=== PATIENT | female | born 1955 | race Caucasian/White ===

== ENCOUNTER 2021-05-14 08:54 | Outpatient (REF) | payer MEDICARE, OTHER, SELFPAY ==
--- NOTE | ~2021-05-14 | CT_ITS ---
EXAMINATION: CT CHEST WITHOUT CONTRAST CLINICAL INFORMATION: Pulmonary nodule follow-up COMPARISON: Previous chest CT April 2020 TECHNIQUE: Multidetector volumetric CT imaging of the chest was done. Axial MIP volume rendering provided. Sagittal and coronal reformatted images were obtained. This CT examination was performed using dose optimization techniques as appropriate, variously including the following: *Automated exposure control *Adjustment of mA and/or kV according to patient size (this includes techniques or standardized protocols for targeted exams where dose is matched to indication/reason for exam; i.e. extremities or head) *Use of iterative reconstruction technique DLP: 133 mGy-cm FINDINGS: VEGETABLES COOK: Unremarkable LUNGS: There is a new 4 mm peripheral or subpleural left lower lobe lower lobe nodule axial image 396 series 7. This probably represents a subpleural lymph node. The small pulmonary nodules are otherwise stable. Largest small pulmonary nodule is a 4 mm peripheral or subpleural right lower lobe nodule adjacent to the major fissure axial image 310 series 7 also probably representing a subpleural lymph node. MEDIASTINUM: The heart does not appear enlarged. There is a trace pericardial effusion or thickening that is stable. There is minimal coronary artery calcification. The thoracic aorta is normal in caliber. There are no enlarged hilar or mediastinal lymph nodes. The visualized thyroid gland is unremarkable. PLEURA: There is no pleural effusion. No pleural mass or thickening. AXILLA: No lymphadenopathy. UPPER ABDOMEN: There is diverticulosis of the colon. There is a 5 x 10 mm low-attenuation lesion high in the right lobe of the liver axial image 56 series 3. Difficult to characterize due to small size and lack of contrast but appears unchanged. OSSEOUS STRUCTURES: There are degenerative changes of the spine. CT/CT chest wo con IMPRESSION: New 4 mm peripheral or subpleural left lower lobe nodule probably representing a subpleural node. Otherwise small pulmonary nodules are stable.
== END 2021-05-14 08:55 | disposition home or self-care (01) ==
LOC: HO.CT 08:54
PROVIDERS: Visit Provider Hospitalist
DX: R91.1 Solitary pulmonary nodule (principal)
CPT/HCPCS: 71250

== ENCOUNTER → 2021-05-30 14:56 | Outpatient (BNVA) | payer MEDICARE, OTHER, SELFPAY | PROVIDERS: PCP Nurse Practitioner Family; Visit Provider Hospitalist | DX: R91.8 Other nonspecific abnormal finding of lung field (principal); J67.9 Hypersensitivity pneumonitis due to unspecified organic dust; J41.0 Simple chronic bronchitis; K21.9 Gastro-esophageal reflux disease without esophagitis | CPT/HCPCS: Q3014 ==

== ENCOUNTER 2022-05-01 10:33 | Outpatient (REF) | payer MEDICARE, SELFPAY ==
--- NOTE | ~2022-05-01 | CT_ITS ---
EXAMINATION: CT CHEST WITHOUT CONTRAST CLINICAL INFORMATION: Hypersensitivity pneumonitis COMPARISON: Previous chest CT scans, most recent April 2021 TECHNIQUE: Multidetector volumetric CT imaging of the chest was done. Axial MIP volume rendering provided. Sagittal and coronal reformatted images were obtained. This CT examination was performed using dose optimization techniques as appropriate, variously including the following: *Automated exposure control *Adjustment of mA and/or kV according to patient size (this includes techniques or standardized protocols for targeted exams where dose is matched to indication/reason for exam; i.e. extremities or head) *Use of iterative reconstruction technique DLP: 125 mGy-cm FINDINGS: LUNGS: The previously identified 4 mm peripheral or subpleural left lower lobe nodule that was new on April 2021 exam is no longer seen. The small pulmonary nodules are otherwise stable. Largest pulmonary nodule is a 5 mm peripheral or subpleural right lower lobe nodule adjacent to the major fissure axial image 309 series 7 that represents a subpleural lymph node. There is a small 1 cm cyst in the peripheral anterior segment of the right upper lobe axial image 209 series 7. The lungs are otherwise clear. No endobronchial or endotracheal lesion is seen. No evidence of emphysema interstitial lung disease or bronchiectasis is seen. No endobronchial or endotracheal lesion is seen. MEDIASTINUM: There is trace pericardial fluid or thickening and minimal coronary artery calcification that is stable. The mediastinum is otherwise normal. PLEURA: There is no pleural effusion. No pleural mass or thickening. AXILLA: No lymphadenopathy. UPPER ABDOMEN: There is diverticulosis of the colon. Stable 5 x 10 mm low-attenuation lesion high in the dome of the right lobe OSSEOUS STRUCTURES: There are degenerative changes of the spine. CT/CT chest wo con IMPRESSION: Previously identified 4 mm peripheral or subpleural left lower lobe nodule that was new on April 2021 exam is no longer seen. Small pulmonary nodules are otherwise stable. Fleischner guidelines were followed.
== END 2022-05-01 10:34 | disposition home or self-care (01) ==
LOC: HO.CT 10:33
PROVIDERS: PCP Registered Nurse; Visit Provider Hospitalist
DX: J67.9 Hypersensitivity pneumonitis due to unspecified organic dust (principal); R91.8 Other nonspecific abnormal finding of lung field
CPT/HCPCS: 71250

== ENCOUNTER → 2022-05-27 13:40 | Outpatient (BNVA) | payer MEDICARE, SELFPAY | PROVIDERS: PCP Registered Nurse; Visit Provider Hospitalist | DX: R91.8 Other nonspecific abnormal finding of lung field (principal); J41.0 Simple chronic bronchitis; J67.9 Hypersensitivity pneumonitis due to unspecified organic dust; K21.9 Gastro-esophageal reflux disease without esophagitis | CPT/HCPCS: 99212 ==

== ENCOUNTER 2023-05-12 10:45 | Outpatient (REF) | payer MEDICARE, SELFPAY ==
--- NOTE | ~2023-05-12 | CT_ITS ---
EXAMINATION: CT CHEST WITHOUT CONTRAST CLINICAL INFORMATION: Pulmonary nodule COMPARISON: Previous chest CT April 2021 TECHNIQUE: Multidetector volumetric CT imaging of the chest was done. Axial MIP volume rendering provided. Sagittal and coronal reformatted images were obtained. This CT examination was performed using dose optimization techniques as appropriate, variously including the following: *Automated exposure control *Adjustment of mA and/or kV according to patient size (this includes techniques or standardized protocols for targeted exams where dose is matched to indication/reason for exam; i.e. extremities or head) *Use of iterative reconstruction technique DLP: 129 mGy-cm FINDINGS: HELMET COVERER: Unremarkable LUNGS: The small pulmonary nodules are stable. Largest pulmonary nodule is a 2 x 5 mm peripheral or subpleural right lower lobe nodule adjacent to the major fissure axial image 290 series 5. This may represent a subpleural lymph node. The lungs are otherwise clear. No endobronchial or endotracheal lesion. Small 1 cm cyst in the anterior right upper lobe. MEDIASTINUM: The mediastinum is normal. CORONARY ARTERY CALCIFICATION: None visualized on this study. PLEURA: There is no pleural effusion. No pleural mass or thickening. AXILLA: No lymphadenopathy. UPPER ABDOMEN: Diverticulosis of the colon. Stable subcentimeter low-attenuation lesion high in the dome of the right lobe of the liver. OSSEOUS STRUCTURES: Degenerative changes of the spine. CT/CT chest wo IV con IMPRESSION: Stable pulmonary nodules. Fleischner guidelines were followed.
== END 2023-05-12 10:46 | disposition home or self-care (01) ==
LOC: HO.CT 10:45
PROVIDERS: PCP Registered Nurse; Visit Provider Hospitalist
DX: R91.8 Other nonspecific abnormal finding of lung field (principal)
CPT/HCPCS: 71250

== ENCOUNTER → 2023-05-27 09:26 | Outpatient (BNVA) | payer MEDICARE, SELFPAY | PROVIDERS: PCP Registered Nurse; Visit Provider Hospitalist | DX: R91.8 Other nonspecific abnormal finding of lung field (principal); J67.9 Hypersensitivity pneumonitis due to unspecified organic dust; J41.0 Simple chronic bronchitis; K21.9 Gastro-esophageal reflux disease without esophagitis; J30.0 Vasomotor rhinitis | CPT/HCPCS: 99212 ==

== ENCOUNTER 2024-02-26 13:11 | Outpatient (AMB) | payer MEDICARE, OTHER, SELFPAY ==
[2024-02-26 13:16] VITALS: BP 98/62; PULSE 80; O2SAT 97; BMI 26.6
--- NOTE | 2024-02-26 13:16 | MHC.OFFVIS ---
Intake Vital Signs 02/26/24 13:16 Height 5 ft 6 in Weight 165 lb BMI 26.6 BP 98/62 Blood Pressure Location Rt brachial Position Sitting Pulse 80 Pulse Source Doppler Pulse Oximetry (%) 97 Oxygen Delivery Method Room Air Intake Visit Reasons: cough Allergies No Known Allergies Allergy (Verified 02/26/24 13:20) HPI HPI Comments History of Present Illness Details The patient is 68 y/o woman with a history of HSP, hiatal hernia: Chronic bronchitis and pulmonary nodules. Overall the right is feeling better. Finally her place work took her of that mold infected environment where she was having worsening respiratory symptoms for numerous years. She is doing better but she has been out of the environment only for 2 months. She has not been using her inhalers regularly. Although, she still has a cough. The cough still lingering mild in severity. Nonproductive in nature. She also underwent a CT scan of the chest to clinic follow up the pulmonary nodules. We personally reviewed the CT scan from June 2019 in June 2018. There appears to be a new left lower lobe density which appears to be 6 mm in size in new compared to her previous. This was not mentioned in the report from Radiology. We will have to add an addendum. In the meantime she does need to have a repeat CT scan in 6 months. She definitely has issues with reflux disease that could be contributing to her very sensitive larynx due to pharyngeal- laryngeal penetration in addition to postnasal drip and allergies. We did look at her last CT scan of the chest that she had back in June mentioning what appeared to be a new left lower lobe density measuring 6 mm in size. The patient should be getting a CT scan 6-9 months from her previous CT scan. I'll make arrangements for that. 05/27/2022 the patient is here for a pulmonary follow-up visit. Overall the patient has been doing well. Her cough is better overall although still congested and intermittent. She does have her significant other with her and he does comment on her cough and feels that is very harsh at times. She denies any shortness of breath. She has been active and exercising regularly. The patient did have a CT scan of the chest April 2022 which we personally reviewed and compared to her previous 1 from 2020. It appears that her pulmonary nodules are stable. She has 1 nodule that has resolved. These nodules have been followed now for 1 year. Will go ahead and repeat the CT scan in a year's time to make sure that there is stability for more than 2 years and we can just follow as needed depending how she is doing. On examination she does have some rhonchi on examination. I do believe that she will benefit from Symbicort. She has used it in the past but then stopped it. Will go ahead and restart at this time. 02/26/2024 the patient is here for pulmonary follow-up visit. Overall the patient is doing well. She started having worsening cough though the last few months. Intermittent. Sometimes with nasal congestion and postnasal drip. She does get worsening postnasal drip and nasal drainage specially when she is going to eat. Her cough sometimes is nonproductive sometimes is productive. She does have a Symbicort inhaler but she has not been using it regularly. She does have hypersensitivities to mold. 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 Explained to her that if she is working with therapy she needs to make sure she use the mask because the mold exposures. She also should be using the Symbicort. In the meantime she may have a component of vasomotor rhinitis. Will go ahead and treat that as well. She does have significant postnasal drip on examination. Her lungs appear to be clear at this time. Also reassuring that she had a recent CT scan of the chest demonstrating no significant changes in her pulmonary nodules and no evidence of any underlying airspace disease. Will plan to follow-up with a CT scan in Fall 2023 COUNTS INCLUDE 234 BEDS AT THE [facility] Medical History (Updated 05/27/23 @ 19:37 by Jabier Reno MD) Vasomotor rhinitis GERD (gastroesophageal reflux disease) Chronic bronchitis Hypersensitivity pneumonitis Pulmonary nodules Social History Patient Tobacco Use Status: Never used Tobacco Review of Systems Const Denies night sweats ENT Denies change in voice, Denies lip swelling, Denies mouth pain, Reports nasal congestion, Reports nasal discharge, Reports post nasal drip and Denies tongue swelling Card Denies chest pain Resp Reports chest congestion and Reports cough GI Denies abdominal pain Musc Denies no additional complaints Neuro Denies Neuro-related abnormal movements Psych Denies no additional complaints Scott/Lymph Denies easy bleeding and Denies lymphadenopathy Aller/Immun Denies lip swelling and Denies tongue swelling Physical Exam Vital Signs: Last Vital Signs Pulse 80 02/26/24 13:16 BP 98/62 02/26/24 13:16 Pulse Ox 97 02/26/24 13:16 Oxygen Delivery Method Room Air 02/26/24 13:16 BMI result Body Mass Index 26.6 Const General: comfortable HEENT Head: Yes normal to inspection General nose exam: Nasal discharge present Eyes General: appearance normal, both eyes and all related structures Neck Neck: Yes supple Chest Chest palpation & inspection: normal inspection of the chest Resp Auscultation: clear to auscultation bilaterally and no rhonchi Cardio Rate: regular rate Rhythm: regular rhythm Heart sounds: S1 normal heart sound present and S2 normal heart sound present GI Inspection: Yes normal to inspection Skin General skin exam: no rashes or lesions noted Assessment & Plan Assessment & Plan (1) Pulmonary nodules: Code(s): R91.8 - Other nonspecific abnormal finding of lung field (2) Hypersensitivity pneumonitis: Comment: better Code(s): J67.9 - Hypersensitivity pneumonitis due to unspecified organic dust (3) Chronic bronchitis: Comment: better Code(s): J42 - Unspecified chronic bronchitis Qualifiers: Chronic bronchitis type: simple Qualified Code(s): J41.0 - Simple chronic bronchitis (4) GERD (gastroesophageal reflux disease): Code(s): K21.9 - Gastro-esophageal reflux disease without esophagitis Qualifiers: Esophagitis presence: without esophagitis Qualified Code(s): K21.9 - Gastro-esophageal reflux disease without esophagitis (5) Vasomotor rhinitis: Code(s): J30.0 - Vasomotor rhinitis Plan Symbicort to use as needed benzonates as needed ipratropium nasal spray as needed Needs Prevnar 20 F/U CT chest Fall 2023 F/U Fall 2023 Orders: Orders CT chest wo IV con 6 Months R91.8 - Other nonspecific abnormal finding of lung field Coding Level of Care Code Est Pt Level 4 (22358) Diagnoses Pulmonary nodules R91.8 Hypersensitivity pneumonitis J67.9 Simple chronic bronchitis J41.0 Chronic bronchitis type: simple Gastroesophageal reflux disease without esophagitis K21.9 Esophagitis presence: without esophagitis Vasomotor rhinitis J30.0 Time Spent (min) 16
== END 2024-02-26 13:47 | disposition home or self-care (01) ==
PROVIDERS: PCP Registered Nurse; Visit Provider Hospitalist
DX: R91.8 Other nonspecific abnormal finding of lung field (principal); J67.9 Hypersensitivity pneumonitis due to unspecified organic dust; J41.0 Simple chronic bronchitis; K21.9 Gastro-esophageal reflux disease without esophagitis; J30.0 Vasomotor rhinitis
CPT/HCPCS: 99214

== ENCOUNTER → 2024-02-26 13:11 | Outpatient (BNVA) | payer MEDICARE, SELFPAY | PROVIDERS: PCP Registered Nurse; Visit Provider Hospitalist | DX: J41.0 Simple chronic bronchitis (principal); J67.9 Hypersensitivity pneumonitis due to unspecified organic dust; J30.0 Vasomotor rhinitis; R91.1 Solitary pulmonary nodule; R91.8 Other nonspecific abnormal finding of lung field; K21.9 Gastro-esophageal reflux disease without esophagitis | CPT/HCPCS: 99212 ==

== ENCOUNTER 2024-08-29 10:13 | Outpatient (REF) | payer MEDICARE, OTHER, SELFPAY ==
--- NOTE | ~2024-08-29 | CT_ITS ---
EXAMINATION: CT CHEST WITHOUT CONTRAST CLINICAL INFORMATION: Pulmonary nodule. Nonspecific abnormal findings of the lung. COMPARISON: CT chest dated May 12, 2023. TECHNIQUE: Multidetector volumetric CT imaging of the chest was done. Axial MIP volume rendering provided. Sagittal and coronal reformatted images were obtained. This CT examination was performed using dose optimization techniques as appropriate, variously including the following: *Automated exposure control *Adjustment of mA and/or kV according to patient size (this includes techniques or standardized protocols for targeted exams where dose is matched to indication/reason for exam; i.e. extremities or head) *Use of iterative reconstruction technique DLP: 127 mGy-cm FINDINGS: Submitted for interpretation on October 28, 2024. There is a nonspecific 2 mm noncalcified pulmonary nodule, right upper lobe. 2 mm noncalcified pulmonary nodule, left upper lobe. Subsegmental atelectasis versus scarring, lung bases and lingula. 10 mm thin-walled bleb, right upper lobe. No bronchiectasis. No honeycombing. No consolidation, pleural effusion or pneumothorax. Respiratory airways patent. No lymphadenopathy, mediastinum or axillary. No aneurysm, thoracic aorta. Calcified plaque in the coronary artery. No gross pericardial effusion. Small hiatal hernia. Few scattered diverticula, splenic colonic flexure. No gross nodular lesions or enlargement of the thyroid gland. Multilevel cervical thoracic spondylosis. No acute fracture or listhesis. Osteopenia versus 2 processes. No lytic or gross blastic lesion. Probable benign bony island, T1 vertebral body. CT/CT chest wo IV con IMPRESSION: Stable subcentimeter noncalcified pulmonary nodules. No acute airspace disease. Multilevel cervical thoracic spondylosis. Fleischner guidelines were followed. Electronically signed by: Neri Malik MD 10/28/2024 01:27 PM LANDRY
== END 2024-08-29 10:14 | disposition home or self-care (01) ==
LOC: HO.CT 10:13
PROVIDERS: PCP Registered Nurse; Visit Provider Hospitalist
DX: R91.8 Other nonspecific abnormal finding of lung field (principal)
CPT/HCPCS: 71250

== ENCOUNTER → 2024-08-29 10:16 | Outpatient (BNV) | payer MEDICARE, OTHER, SELFPAY | PROVIDERS: PCP Registered Nurse; Visit Provider Radiology Diagnostic Radiology | DX: R91.8 Other nonspecific abnormal finding of lung field (principal); M43.03 Spondylolysis, cervicothoracic region | CPT/HCPCS: 71250 ==

== ENCOUNTER 2024-11-01 09:17 | Outpatient (AMB) | payer MEDICARE, OTHER, SELFPAY ==
[2024-11-01 09:21] VITALS: BP 110/64; PULSE 72; O2SAT 97; BMI 26.7
--- NOTE | 2024-11-01 09:21 | A.OFFVIS_ITS ---
Vital Signs 11/01/24 09:21 Height 5 ft 6 in Weight 165 lb 5.547 oz BMI 26.7 BP 110/64 Blood Pressure Location Lt brachial Position Sitting Pulse 72 Pulse Source Pulse Oximeter Pulse Oximetry (%) 97 Oxygen Delivery Method Room Air Intake Visit Reasons: Cough Denture Packer Required: No Motion Picture Critic: Motion Picture Critic offered & declined Accompanied by: Self / Same As Patient Allergies No Known Allergies Allergy (Verified 11/01/24 09:24) Medication List - Last Reconciled 11/01/24 by Lesley Olvera LPN atorvastatin 20 mg PO DAILY benzonatate 200 mg PO BID PRN 30 days benzonatate 200 mg PO BID PRN 30 days estradiol 1 patch transdermal 2XW fluticasone propion-salmeterol 250-50 mcg/dose (Wixela Inhub) 1 inh inhalation Q12H 30 days ipratropium bromide 2 sprays intranasal TID PRN progesterone micronized 100 mg PO BEDTIME HPI Comments Details: The patient is 69 y/o woman with a history of HSP, hiatal hernia: Chronic bronchitis and pulmonary nodules. Overall the right is feeling better. Finally her place work took her of that mold infected environment where she was having worsening respiratory symptoms for numerous years. She is doing better but she has been out of the environment only for 2 months. She has not been using her inhalers regularly. Although, she still has a cough. The cough still lingering mild in severity. Nonproductive in nature. She also underwent a CT scan of the chest to clinic follow up the pulmonary nodules. We personally reviewed the CT scan from June 2019 in June 2018. There appears to be a new left lower lobe density which appears to be 6 mm in size in new compared to her previous. This was not mentioned in the report from Radiology. We will have to add an addendum. In the meantime she does need to have a repeat CT scan in 6 months. She definitely has issues with reflux disease that could be contributing to her very sensitive larynx due to pharyngeal- laryngeal penetration in addition to postnasal drip and allergies. We did look at her last CT scan of the chest that she had back in June mentioning what appeared to be a new left lower lobe density measuring 6 mm in size. The patient should be getting a CT scan 6-9 months from her previous CT scan. I'll make arrangements for that. 05/27/2022 the patient is here for a pulmonary follow-up visit. Overall the patient has been doing well. Her cough is better overall although still congested and intermittent. She does have her significant other with her and he does comment on her cough and feels that is very harsh at times. She denies any shortness of breath. She has been active and exercising regularly. The patient did have a CT scan of the chest April 2022 which we personally reviewed and compared to her previous 1 from 2020. It appears that her pulmonary nodules are stable. She has 1 nodule that has resolved. These nodules have been followed now for 1 year. Will go ahead and repeat the CT scan in a year's time to make sure that there is stability for more than 2 years and we can just follow as needed depending how she is doing. On examination she does have some rhonchi on examination. I do believe that she will benefit from Symbicort. She has used it in the past but then stopped it. Will go ahead and restart at this time. 02/26/2024 the patient is here for pulmonary follow-up visit. Overall the patient is doing well. She started having worsening cough though the last few months. Intermittent. Sometimes with nasal congestion and postnasal drip. She does get worsening postnasal drip and nasal drainage specially when she is going to eat. Her cough sometimes is nonproductive sometimes is productive. She does have a Symbicort inhaler but she has not been using it regularly. She does have hypersensitivities to mold. 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 Explained to her that if she is working with therapy she needs to make sure she use the mask because the mold exposures. She also should be using the Symbicort. In the meantime she may have a component of vasomotor rhinitis. Will go ahead and treat that as well. She does have significant postnasal drip on examination. Her lungs appear to be clear at this time. Also reassuring that she had a recent CT scan of the chest demonstrating no significant changes in her pulmonary nodules and no evidence of any underlying airspace disease. Will plan to follow-up with a CT scan in fall 202311/01/2024 the patient is here for a pulmonary follow-up visit. The patient overall has been doing well from a respiratory status. 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 Was been on but had to remove. It was an extensive surgery and she did well. She recovered well. Respiratory nascimento she recently did have increased respiratory symptoms. Her Wixela seems to be working well. The [employer] is no longer cover. She did have a CT scan of the chest recently that I personally reviewed. The patient does have stable pulmonary nodules. They appear to have been stable now for about 3 years. Therefore, based on the fact that the nodules that showed stability for more than 2 years we can just follow him as needed. She also has other changes that are not too significant but she does have some calcifications of the coronary artery she has the little bit. Also has a small hiatal hernia in addition to some osteopenia. The patient is aware these things and she is going to continue to take proactive measures. The patient follow-up in a year or sooner if she develops any new issues. Will discuss additional imaging studies if warranted next year. [facility] Medical History (Updated 05/27/23 @ 19:37 by Jabier Reno MD) Vasomotor rhinitis GERD (gastroesophageal reflux disease) Chronic bronchitis Hypersensitivity pneumonitis Pulmonary nodules Social History Patient Tobacco Use Status: Never used Tobacco Review of Systems Const Denies night sweats ENT Denies change in voice, Denies lip swelling, Denies mouth pain, Reports nasal congestion, Reports nasal discharge, Reports post nasal drip and Denies tongue swelling Card Denies chest pain Resp Reports chest congestion and Reports cough GI Denies abdominal pain Musc Denies no additional complaints Neuro Denies Neuro-related abnormal movements Psych Denies no additional complaints Scott/Lymph Denies easy bleeding and Denies lymphadenopathy Aller/Immun Denies lip swelling and Denies tongue swelling Physical Exam Vital Signs: Last Vital Signs Pulse 72 11/01/24 09:21 BP 110/64 11/01/24 09:21 Pulse Ox 97 11/01/24 09:21 Oxygen Delivery Method Room Air 11/01/24 09:21 BMI result Body Mass Index 26.7 Const General: comfortable HEENT General nose exam: Nasal discharge present Face and sinus: Yes other (post op parotid mass resection) Eyes General: appearance normal, both eyes and all related structures Neck Neck: Yes supple Chest Chest palpation & inspection: normal inspection of the chest Resp Auscultation: clear to auscultation bilaterally and no rhonchi Cardio Rate: regular rate Rhythm: regular rhythm Heart sounds: S1 normal heart sound present and S2 normal heart sound present GI Inspection: Yes normal to inspection Skin General skin exam: no rashes or lesions noted Assessment & Plan Assessment & Plan (1) Pulmonary nodules: Code(s): R91.8 - Other nonspecific abnormal finding of lung field Category: Medical (2) Hypersensitivity pneumonitis: Comment: better Code(s): J67.9 - Hypersensitivity pneumonitis due to unspecified organic dust Category: Medical (3) Chronic bronchitis: Comment: better Code(s): J42 - Unspecified chronic bronchitis Category: Medical Qualifiers: Chronic bronchitis type: simple Qualified Code(s): J41.0 - Simple chronic bronchitis (4) GERD (gastroesophageal reflux disease): Code(s): K21.9 - Gastro-esophageal reflux disease without esophagitis Category: Medical Qualifiers: Esophagitis presence: without esophagitis Qualified Code(s): K21.9 - Gastro-esophageal reflux disease without esophagitis (5) Vasomotor rhinitis: Code(s): J30.0 - Vasomotor rhinitis Category: Medical Plan Wixela BID benzonates as needed ipratropium nasal spray as needed Stable CT chest, will reassess additional imaging next year F/U 1 yr Medications: Refilled fluticasone propion-salmeterol 250-50 mcg/dose (Wixela Inhub) 1 inh inhalation Q12H 60 ea 11RF 30 days benzonatate 200 mg PO BID PRN 60 caps 6RF cough 30 days Coding Level of Care Code Est Pt Level 4 (86545) Diagnoses Pulmonary nodules R91.8 Hypersensitivity pneumonitis J67.9 Simple chronic bronchitis J41.0 Chronic bronchitis type: simple Gastroesophageal reflux disease without esophagitis K21.9 Esophagitis presence: without esophagitis Vasomotor rhinitis J30.0 Time Spent (min) 17
== END 2024-11-01 09:47 | disposition home or self-care (01) ==
PROVIDERS: PCP Registered Nurse; Visit Provider Hospitalist
DX: R91.8 Other nonspecific abnormal finding of lung field (principal); J67.9 Hypersensitivity pneumonitis due to unspecified organic dust; J41.0 Simple chronic bronchitis; K21.9 Gastro-esophageal reflux disease without esophagitis; J30.0 Vasomotor rhinitis
CPT/HCPCS: 99214

== ENCOUNTER → 2024-11-01 09:17 | Outpatient (BNVA) | payer MEDICARE, OTHER, SELFPAY | PROVIDERS: PCP Registered Nurse; Visit Provider Hospitalist | DX: J67.9 Hypersensitivity pneumonitis due to unspecified organic dust (principal); J41.0 Simple chronic bronchitis; J30.0 Vasomotor rhinitis; R91.8 Other nonspecific abnormal finding of lung field; K21.9 Gastro-esophageal reflux disease without esophagitis | CPT/HCPCS: 99212 ==